=== PATIENT | male | born 1945 | race Caucasian/White ===

== ENCOUNTER 2023-08-02 08:00 | Day surgery (SDC) | payer MEDICARE, BC, SELFPAY ==
[2023-08-02] MEDS: LACTATED RINGERS 1000 ML 1,000 ML 100 ML IV (08:20)
[2023-08-02] MEDS: SODIUM CHLORIDE 0.9 % (FLUSH) 10 ML SYRINGE IVF (08:24)
[2023-08-02 08:25] VITALS: BP 144/84; PULSE 57; RESP 18; TEMP 36.3; O2SAT 96; BMI 31.2
--- NOTE | 2023-08-02 08:58 | PM.GSPRC ---
Operative Note Pre-op diagnosis: Left lateral neck mass Post-op diagnosis: Same Type of Procedure: Excision left lateral neck mass, 4 cm Indications: The patient is a 78-year-old male with a mass in his posterior neck that has been present for approximately 15 years. It has not been particularly painful, however it is getting in the way and he is having difficulty finding shorts that fit his neck. Ultrasound revealed the mass to be a 5x 6 cm mass that appeared to be consistent with a lipoma. Procedure Description: After discussing the risks and benefits of the procedure, the patient signed informed consent.? The operative site was marked and the patient was brought to the operating room and placed on the operating table in right lateral decubitus position.? Care was taken to pad the patient's pressure points.?? The patient was then given sedation by anesthesia.?? The operative site was then prepped and draped in the usual sterile fashion.? A time-out was then performed. Local anesthetic was injected into the skin and subcutaneous tissue overlying the the mass. A knife was then used to create incision down to subcutaneous fat. Initially, there did not appear to be a well encapsulated lipoma here. A portion of the subcutaneous fat was removed superiorly and there was a fibrous capsule which was incised. Under this, a lipomatous appearing mass was discovered. This was delivered from the incision. Small fibrous attachments were divided with scissors to completely excise the mass. This was completely extracted from the superior aspect of the incision. Below this was muscle fascia. This was incised with cautery and a small area to confirm. Inferiorly the border of the mass was not well defined. A small additional rim of fat was therefore removed. Once this was done, hemostasis was achieved with cautery and a 3-0 Vicryl stitch. 3-0 Vicryl was then used to close the subcutaneous space and then close the dermal layer. Skin was then closed with 4-0 Monocryl in a running subcuticular fashion. Glue was then applied. ? The patient was then woken and transported to the recovery area in stable condition. ? The patient tolerated the procedure well. Findings: Subcutaneous lipoma, well encapsulated superiorly, however inferior border poorly defined. Anesthesia: MAC Surgeon: No Molina MD Estimated blood loss (mL): 1 Additional Specimen Information: Posterior neck mass Condition: stable Disposition: same day Date of procedure: 08/02/23
[2023-08-02] MEDS: CEFAZOLIN 1 GM inj IVP (09:21)
[2023-08-02] MEDS: LIDOCAINE 1% 5 ml (pf) 5 ML VIAL 30 ML INJECTION (10:10)
[2023-08-02] MEDS: BUPIVACAINE 0.25% 30 ML INJECTION (10:10)
[2023-08-02 10:21] VITALS: BP 126/75; PULSE 69; RESP 16; TEMP 36.3; O2SAT 97
--- NOTE | 2023-08-02 10:24 | W.ANESCHARGE ---
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
[2023-08-02 10:30] VITALS: BP 129/76; PULSE 64; RESP 16; O2SAT 98
[2023-08-02 10:45] VITALS: BP 126/75; PULSE 65; RESP 16; O2SAT 98
[2023-08-02 11:00] VITALS: BP 128/72; PULSE 64; RESP 16; O2SAT 98
--- NOTE | 2023-08-02 11:42 | W.ANESCHARGE ---
Anesthesia Charges Start Date/Time Anesthesia Start Date: 08/02/23 Anesthesia Start Time: 09:11 Stop Date/Time Anesthesia Stop Date: 08/02/23 Anesthesia Stop Time: 10:23 Summary Extremes of Age - Over 70 or under 1: MDA
== END 2023-08-02 11:07 | disposition home or self-care (01) ==
PROVIDERS: PCP Surgery; Visit Provider Surgery
PROC: (CPT 21552; principal; 2023-08-02 09:30)
DX: D17.0 Benign lipomatous neoplasm of skin and subcutaneous tissue of head, face and neck (principal)
CPT/HCPCS: 21552; 300; 88305; 88377; 99100; J0665; J0690; J1100; J2250; J2405; J2704; J3010; J7120